=== PATIENT | female | born 1995 | race African-American/Black ===

== ENCOUNTER 2016-06-27 19:42 | Outpatient (CLI) | payer OTHER | END 2016-06-27 19:45 | disposition home or self-care (01) | LOC: CANPRECLI → M LDO 19:42 | PROVIDERS: ATTEND Advanced Practice Midwife | DX: Z36 Encounter for antenatal screening of mother (principal); Z3A.22 22 weeks gestation of pregnancy; Z79.899 Other long term (current) drug therapy ==

== ENCOUNTER 2016-06-27 19:51 | Emergency (ER) | payer OTHER ==
[2016-06-27] MEDS ORDERED: METOCLOPRAMIDE INJ 10MG/2ML VIAL (J2765) As Ordered ONE (21:20)
[2016-06-27 21:30] LABS: EOS # 0.2 K/mm3 (0.0-0.50); EOS % 1.7 % (0.0-3.0); LARGE UNSTAINED CELL # 0.1 K/mm3 (0.0-0.4); LARGE UNSTAINED CELL % 0.4 % (0.0-4.0); LYMPH # 0.6 K/mm3 (1.5-6.5); LYMPH % 3.7 % (24.0-44.0); MEAN CORPUSCULAR HGB CONC 33.2 g/dl (32.0-36.5); MEAN CORPUSCULAR VOLUME 84.3 fl (80.0-96.0); MONO # 0.4 K/mm3 (0.0-0.8); MONO % 2.8 % (0.0-5.0); NEUTROPHILS # 12.9 K/mm3 (1.8-7.7); NEUTROPHILS % 91.3 % (36.0-66.0); PLATELET COUNT, AUTOMATED 302 k/mm3 (150-450); RED CELL DISTRIBUTION WIDTH 13.3 % (11.5-14.5); WHITE BLOOD COUNT 14.2 K/mm3 (4.0-10.0)
[2016-06-27 21:52] LABS: ALBUMIN 2.8 GM/DL (3.2-5.2); ALBUMIN/GLOBULIN RATIO 0.67 (1.00-1.93); ALKALINE PHOSPHATASE 85 U/L (45-117); ALT/SGPT 13 U/L (12-78); ANION GAP 12 MEQ/L (8-16); AST/SGOT 13 U/L (15-37); BILIRUBIN,DIRECT < 0.1 MG/DL (0.0-0.2); BILIRUBIN,TOTAL 0.3 MG/DL (0.2-1.0); BLOOD UREA NITROGEN 11 MG/DL (7-18); CALCIUM LEVEL 8.3 MG/DL (8.5-10.1); CARBON DIOXIDE LEVEL 22 MEQ/L (21-32); CHLORIDE LEVEL 107 MEQ/L (98-107); GLOMERULAR FILTRATION RATE > 60.0 (>60); GLUCOSE, FASTING 87 MG/DL (70-105); POTASSIUM SERUM 4.1 MEQ/L (3.5-5.1); SODIUM LEVEL 141 MEQ/L (136-145)
--- NOTE | 2016-06-27 23:16 | EDDOCDS ---
Physician Documentation [facility] Name: Desi Mcguire Age: 20 yrs Sex: Female : 1995 Arrival Date: 06/27/2016 Time: 19:51 Bed I2 / M2 Private MD: TY Killian Disposition: 06/27/16 23:00 Discharged to Home/Self Care. Impression: Vomiting, Diarrhea, unspecified, 20 weeks gestation of . - Condition is Stable. - Discharge Instructions: Diarrhea, Nausea and Vomiting, Second Trimester of , Vyfx-ic-Eqys. - Prescriptions for Reglan 10 mg Oral Tablet - take 1 tablet by ORAL route every 6 hours take 30 minutes before meals and at bedtime; 20 tablet. - Work Release Form - 2 day, Medication Reconciliation, Local Pharmacy Hours form. - Follow up: TY Killian; When: Call to arrange an appointment; Reason: Recheck today's complaints, Continuance of care. - Problem is new. - Symptoms are unchanged. Historical: - Allergies: none; - Home Meds: 1. Advair Diskus 250-50 mcg/dose Inhl dsdv 1 puff 2 times per day 2. albuterol sulfate 90 mcg/actuation Inhl HFAA 1 puff every 4 hours 3. albuterol sulfate 1.25 mg/3 mL Inhl nebu 3 mL 3 times per day 4. fluticasone 50 mcg/actuation nasal spsn 2 sprays as needed 5. loratadine 10 mg Oral tab 1 tab once daily 6. Singulair 10 mg Oral tab 1 tab once daily - PMHx: Allergies, Seasonal; Asthma; back pain; Eczema; ulcers; - PSHx: Adenoidectomy; - Social history: Smoking status: Patient states was never smoker of tobacco. No barriers to communication noted, The patient speaks fluent [place]. - Family history: Not pertinent. - : The pt / caregiver states he / she is not on anticoagulants. Home medication list is obtained from the patient. - Exposure Risk Screening:: None identified. 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 3 in. (160.02 cm); Pain 9/10; 23:13 BP 118 / 64; Pulse 109; Resp 20; Pulse Ox 98% ; slm 19:53 Body Mass Index 60.23 (154.22 kg, 160.02 cm) cmb MDM: 20:34 NS 0.9% 1000 ml IV at bolus once ordered. mo1 20:34 IV Saline Lock ordered. mo1 20:34 Undress patient appropriately for examination ordered. mo1 20:34 Metoclopramide 10 mg IV at 40 mg/hr once over 15 mins ordered. mo1 20:34 NOTHING BY MOUTH+DIET ordered. EDMS 20:35 Basic Metabolic Profile Ordered. EDMS 20:35 CBC with Diff Ordered. EDMS 20:35 Lipase Ordered. EDMS 20:35 Liver Profile Ordered. EDMS 20:35 Urinalysis Ordered. EDMS 20:35 Urine Culture Ordered. EDMS 20:46 Financial registration complete. [email or web address] 20:57 [facility] Payment Agreement was scanned into [employer] and attached to record. ks16 21:38 Obs. Limited, WARD US Ordered. EDMS 22:03 Basic Metabolic Profile Reviewed. mo1 22:04 CBC with Diff Reviewed. mo1 22:04 Liver Profile Reviewed. mo1 22:04 Urinalysis Reviewed. mo1 22:05 Lipase Reviewed. mo1 Administered Medications: 21:39 Drug: NS 0.9% 1000 ml Route: IV; Rate: bolus; Site: right antecubital; [facility] 23:15 Follow up: IV Status: Completed infusion; IV Intake: 1000ml [facility] 21:39 Drug: Metoclopramide 10 mg [metoclopramide 5 mg/mL injection solution] Route: IV; Rate: cjh 40 mg/hr; Infused Over: 15 mins; Site: right antecubital; Signatures: Dispatcher [employer] Marci Mendoza RN RN mcp O'Hagan, Michael, PA PA mo1 Audra Hammonds LPN LPN Nyasia Scott RN RN ko2 Maite Mireles, Reg Reg ks16 Faye Howard RN [facility] The chart was reviewed and I authenticate all verbal orders and agree with the evaluation and treatment provided.Corrections: (The following items were deleted from the chart) 21:37 21:00 US OBS SINGEL GEST+US ordered. EDMS EDMS 21:40 20:21 Heart Tones ordered. mo1 [facility] Attachments: 20:57 [facility] Payment Agreement ks16 MTDD
--- NOTE | 2016-06-27 23:16 | EDDOCDS ---
Nurse's Notes [facility] Name: Desi Mcguire Age: 20 yrs Sex: Female : 1995 Arrival Date: 06/27/2016 Time: 19:51 Bed I2 / M2 Private MD: TY Killian Diagnosis: Vomiting;Diarrhea, unspecified;20 weeks gestation of Presentation: 06/27 19:56 Presenting complaint: Patient states: Constant upper abdomen pain since Wednesday, mcp vomiting since early this am. Is 21 weeks . Adult Sepsis Screening: The patient does not have new or worsening altered mentation. Patient's respiratory rate is less than 22. Systolic blood pressure is greater than 100. Patient has a qSOFA score of 0- Negative Sepsis Screen. Suicide/Homicide risk assessment- the patient denies having any suicidal and/or homicidal ideations and does not present with any other emotional, behavioral or mental health complaints. Status: The patient is a dependent. Transition of care: patient was not received from another setting of care. 19:56 Acuity: RADHA Level 3 [facility] 19:56 Method Of Arrival: Wheelchair [facility] Triage Assessment: 19:59 General: Appears ill, Behavior is cooperative. Pain: Location: right upper quadrant and mcp left upper quadrant Pain currently is 9 out of 10 on a pain scale. HIV screening NA for this visit Offered previously. Neurological: No deficits noted. Respiratory: Airway is patent Respiratory effort is even, unlabored. GI: Reports upper abd pain, nausea, vomiting. Derm: Skin is normal. 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 Advair Diskus 250-50 mcg/dose Inhl dsdv 1 puff 2 times per day 2. albuterol sulfate 90 mcg/actuation Inhl HFAA 1 puff every 4 hours 3. albuterol sulfate 1.25 mg/3 mL Inhl nebu 3 mL 3 times per day 4. fluticasone 50 mcg/actuation nasal spsn 2 sprays as needed 5. loratadine 10 mg Oral tab 1 tab once daily 6. Singulair 10 mg Oral tab 1 tab once daily - PMHx: Allergies, Seasonal; Asthma; back pain; Eczema; ulcers; - PSHx: Adenoidectomy; - Social history: Smoking status: Patient states was never smoker of tobacco. No barriers to communication noted, The patient speaks fluent Indonesian. - Family history: Not pertinent. - : The pt / caregiver states he / she is not on anticoagulants. Home medication list is obtained from the patient. - Exposure Risk Screening:: None identified. Screenin:11 Screening information is obtained from the patient. Fall risk: No risks identified. ko2 Assistance ADL's: requires no assistance with activities of daily living. Abuse/DV Screen: The patient / caregiver reports he/she is: not in a situation that causes fear, pain or injury. Nutritional screening: No deficits noted. Advance Directives: Currently, there is no health care proxy. There is no active DNR order. There is no living will. There is no Power of Lead Generator. home support is adequate. Assessment: 20:15 General: Appears distressed, Behavior is appropriate for age, cooperative. ko2 Neurological: Level of Consciousness is awake, alert. Respiratory: Airway is patent Respiratory effort is even, unlabored. GI: Abdomen is gravid Bowel sounds present X 4 quads. Abd is soft and non tender. Derm: Skin is normal. 21:20 General: Appears distressed, Behavior is appropriate for age, cooperative. ko2 Neurological: Level of Consciousness is awake, alert. Respiratory: Airway is patent Respiratory effort is even, unlabored. Derm: Skin is normal. 22:32 General: Appears in no apparent distress, pt currently snoring on stretcher. ko2 Respiratory: Airway is patent Respiratory effort is even, unlabored. Derm: Skin is normal. 23:13 Reassessment: Patient appears in no apparent distress at this time. Patient states slm feeling better. Patient states symptoms have improved. Vital Signs: 19:53 BP 143 / 71; Pulse 120; Resp 18; Temp 99.4(O); Pulse Ox 99% ; Weight 154.22 kg; Height cmb 5 ft. 3 in. (160.02 cm); Pain 9/10; 23:13 BP 118 / 64; Pulse 109; Resp 20; Pulse Ox 98% ; slm 19:53 Body Mass Index 60.23 (154.22 kg, 160.02 cm) cmb Vitals: 19:53 Log In Time: June 27, 2016 at 19:51. cmb ED Course: 19:52 Patient visited by Idalia Marques. cmb 19:52 Constantin [facility] is Private Physician. cmb 19:52 Patient moved to Waiting cmb 19:54 Patient moved to Pre RCE cmb 19:58 Triage Initiated mcp 19:59 Patient visited by Marci Singletary RN. mcp 20:02 Patient moved to Triage 3 mcp 20:04 Patient moved to I2 / M2 ms18 20:20 Shabbir Pedersen PA is PHCP. mo1 20:20 Janak Jansen DO is Attending Physician. mo1 20:33 Patient visited by Shabbir Pedersen PA. mo1 20:55 Patient name changed from Desi\S\\S\Maynor\S\ to Desi\S\ \S\Maynor. EDMS 20:57 [facility] Payment Agreement was scanned into [employer] and attached to record. ks16 21:21 Basic Metabolic Profile Sent. ko2 21:22 CBC with Diff Sent. ko2 21:22 Liver Profile Sent. ko2 21:22 Lipase Sent. ko2 21:22 Urinalysis Sent. ko2 21:22 Urine Culture Sent. ko2 21:38 Patient visited by Nyasia Gonzalez RN. ko2 22:12 The patient / caregiver is instructed regarding the plan of care and ED course. ko2 22:31 Patient visited by Nyasia Gonzalez RN. ko2 22:32 Patient visited by Nyasia Gonzalez RN. ko2 23:00 TY Killian is Referral Physician. mo1 23:13 Inserted saline lock: 20 gauge in left antecubital area and blood collected. slm 23:14 Discontinued lock intact, bleeding controlled, pressure dressing applied, No slm redness/swelling at site. 23:14 No procedures done that require assistance. slm Administered Medications: 21:39 Drug: NS 0.9% 1000 ml Route: IV; Rate: bolus; Site: right antecubital; cjh 23:15 Follow up: IV Status: Completed infusion; IV Intake: 1000ml slm 21:39 Drug: Metoclopramide 10 mg [metoclopramide 5 mg/mL injection solution] Route: IV; Rate: cjh 40 mg/hr; Infused Over: 15 mins; Site: right antecubital; Intake: 23:15 IV: 1000.00ml; Total: 1000.00ml. [facility] Order Results: Lab Order: Basic Metabolic Profile; SPEC06/27/16 21:18 Test: GLUCOSE, FASTING; Value: 87; Range: 70-105; Units: MG/DL; Status: F Test: BLOOD UREA NITROGEN; Value: 11; Range: 7-18; Units: MG/DL; Status: F Test: CREATININE FOR GFR; Value: 0.50; Range: 0.55-1.02; Abnormal: Below low normal; Units: MG/DL; Status: F Test: GLOMERULAR FILTRATION RATE; Value: > 60.0; Range: >60; Status: F Test: SODIUM LEVEL; Value: 141; Range: 136-145; Units: MEQ/L; Status: F Test: POTASSIUM SERUM; Value: 4.1; Range: 3.5-5.1; Units: MEQ/L; Status: F Test: CHLORIDE LEVEL; Value: 107; Range: 98-107; Units: MEQ/L; Status: F Test: CARBON DIOXIDE LEVEL; Value: 22; Range: 21-32; Units: MEQ/L; Status: F Test: ANION GAP; Value: 12; Range: 8-16; Units: MEQ/L; Status: F Test: CALCIUM LEVEL; Value: 8.3; Range: 8.5-10.1; Abnormal: Below low normal; Units: MG/DL; Status: F Test Note: ; Units are mL/min/1.73 m2 Chronic Kidney Disease Staging per NKF: Stage I & II GFR >=60 Normal to Mildly Decreased Stage III GFR 30-59 Moderately Decreased Stage IV GFR 15-29 Severely Decreased Stage V GFR <15 Very Little GFR Left ESRD GFR <15 on [employer] Lab Order: CBC with Diff; SPEC06/27/16 21:18 Test: WHITE BLOOD COUNT; Value: 14.2; Range: 4.0-10.0; Abnormal: Above high normal; Units: K/mm3; Status: F Test: RED BLOOD COUNT; Value: 4.35; Range: 4.00-5.40; Units: M/mm3; Status: F Test: HEMOGLOBIN; Value: 12.2; Range: 12.0-16.0; Units: g/dl; Status: F Test: HEMATOCRIT; Value: 36.7; Range: 36.0-47.0; Units: %; Status: F Test: MEAN CORPUSCULAR VOLUME; Value: 84.3; Range: 80.0-96.0; Units: fl; Status: F Test: MEAN CORPUSCULAR HEMOGLOBIN; Value: 28.0; Range: 27.0-33.0; Units: pg; Status: F Test: MEAN CORPUSCULAR HGB CONC; Value: 33.2; Range: 32.0-36.5; Units: g/dl; Status: F Test: RED CELL DISTRIBUTION WIDTH; Value: 13.3; Range: 11.5-14.5; Units: %; Status: F Test: PLATELET COUNT, AUTOMATED; Value: 302; Range: 150-450; Units: k/mm3; Status: F Test: NEUTROPHILS %; Value: 91.3; Range: 36.0-66.0; Abnormal: Above high normal; Units: %; Status: F Test: LYMPH %; Value: 3.7; Range: 24.0-44.0; Abnormal: Below low normal; Units: %; Status: F Test: MONO %; Value: 2.8; Range: 0.0-5.0; Units: %; Status: F Test: EOS %; Value: 1.7; Range: 0.0-3.0; Units: %; Status: F Test: BASO %; Value: 0.0; Range: 0.0-1.0; Units: %; Status: F Test: LARGE UNSTAINED CELL %; Value: 0.4; Range: 0.0-4.0; Units: %; Status: F Test: NEUTROPHILS #; Value: 12.9; Range: 1.8-7.7; Abnormal: Above high normal; Units: K/mm3; Status: F Test: LYMPH #; Value: 0.6; Range: 1.5-6.5; Abnormal: Below low normal; Units: K/mm3; Status: F Test: MONO #; Value: 0.4; Range: 0.0-0.8; Units: K/mm3; Status: F Test: EOS #; Value: 0.2; Range: 0.0-0.50; Units: K/mm3; Status: F Test: BASO #; Value: 0.0; Range: 0.0-0.2; Units: K/mm3; Status: F Test: LARGE UNSTAINED CELL #; Value: 0.1; Range: 0.0-0.4; Units: K/mm3; Status: F Lab Order: Lipase; [facility] 06/27/16 21:18 Test: LIPASE; Value: 106; Range: 73-393; Units: U/L; Status: F Lab Order: Liver Profile; [facility] 06/27/16 21:18 Test: AST/SGOT; Value: 13; Range: 15-37; Abnormal: Below low normal; Units: U/L; Status: F Test: ALT/SGPT; Value: 13; Range: 12-78; Units: U/L; Status: F Test: ALKALINE PHOSPHATASE; Value: 85; Range: 45-117; Units: U/L; Status: F Test: BILIRUBIN,TOTAL; Value: 0.3; Range: 0.2-1.0; Units: MG/DL; Status: F Test: BILIRUBIN,DIRECT; Value: < 0.1; Range: 0.0-0.2; Units: MG/DL; Status: F Test: TOTAL PROTEIN; Value: 7.0; Range: 6.4-8.2; Units: GM/DL; Status: F Test: ALBUMIN; Value: 2.8; Range: 3.2-5.2; Abnormal: Below low normal; Units: GM/DL; Status: F Test: ALBUMIN/GLOBULIN RATIO; Value: 0.67; Range: 1.00-1.93; Abnormal: Below low normal; Status: F Lab Order: Urinalysis; [facility] 06/27/16 21:18 Test: APPEARANCE, URINE; Value: CLOUDY; Range: CLEAR; Abnormal: Above high normal; Status: F Test: COLOR, URINE; Value: YELLOW; Range: YELLOW; Status: F Test: PH,URINE; Value: 6.0; Range: 5.0-9.0; Units: UNITS; Status: F Test: SPECIFIC GRAVITY URINE AUTO; Value: 1.029; Range: 1.002-1.035; Status: F Test: PROTEIN, URINE AUTO; Value: 1+; Range: NEGATIVE; Abnormal: Above high normal; Units: mg/dL; Status: F Test: GLUCOSE, URINE (UA) AUTO; Value: NEGATIVE; Range: NEGATIVE; Units: mg/dL; Status: F Test: KETONE, URINE AUTO; Value: TRACE; Range: NEGATIVE; Abnormal: Above high normal; Units: mg/dL; Status: F Test: UROBILINOGEN, URINE AUTO; Value: 0.2; Range: 0.0-2.0; Units: mg/dL; Status: F Test: BILIRUBIN, URINE AUTO; Value: NEGATIVE; Range: NEGATIVE; Status: F Test: NITRITE, URINE AUTO; Value: NEGATIVE; Range: NEGATIVE; Status: F Test: LEUKOCYTE ESTERASE, URINE AUTO; Value: NEGATIVE; Range: NEGATIVE; Status: F Test: BLOOD, URINE BLOOD; Value: NEGATIVE; Range: NEGATIVE; Status: F Test: WBC, URINE AUTO; Value: 4; Range: 0-3; Abnormal: Above high normal; Units: /HPF; Status: F Test: RBC, URINE AUTO; Value: 2; Range: 0-3; Units: /HPF; Status: F Test: BACTERIA, URINE AUTO; Value: 2+; Range: NEGATIVE; Abnormal: Above high normal; Status: F Test: SQUAMOUS EPITHELIAL CELL UR AU; Value: 5; Range: 0-6; Units: /HPF; Status: F Test: MUCUS, URINE; Value: MODERATE; Range: NEGATIVE; Status: F Test: HYALINE CAST, URINE AUTO; Value: 0; Range: 0-1; Units: /LPF; Status: F Outcome: 23:00 Discharge ordered by Provider. mo1 23:14 Discharge Assessment: Patient awake, alert and oriented x 3. No cognitive and/or slm functional deficits noted. Patient verbalized understanding of disposition instructions. patient administered narcotics - no. The following High Risk Discharge criteria are identified: None. Condition: good. Discharge instructions given to patient, Instructed on discharge instructions, follow up and referral plans. medication usage, Demonstrated understanding of instructions, medications, Pt was receptive of discharge instructions/ teaching. Prescriptions given X 1. Ultrasound Study completed. Property :Personal belongings accompany Pt. 23:15 Patient left the ED. slm Signatures: Dispatcher [employer] EDMS Marci Singletary RN RN mcp Hafner, Jane, RN RN cjh Boshart, Chelsea cmb O'Hagan, Michael, PA PA mo1 Audra Hammonds,ANALYTICAL STATISTICIAN ANALYTICAL STATISTICIAN slNyasia Scott,RN RN ko2 Bina GrigsbyRN RN ms18 Maite Mireles, Reg Reg ks16 MTDD
--- NOTE | 2016-06-29 10:51 | REPUSA ---
CLINICAL HISTORY: 22 weeks 0 days. Evaluate well-being. COMPARISON: No study for comparison is available at the time of interpretation. TECHNIQUE: OB ultrasound Uterus: Normal without masses. Cervix closed, 4.2 cm length. Intrauterine gestation sac: Live IUP with heart rate 155 bpm. Amniotic fluid index normal at 13 cm. P lacenta is posterior, without previa. No nuchal cord was seen. Anatomic survey was not requested or p erformed. IMPRESSION: Live IUP.
--- NOTE | 2016-06-30 00:16 | EDDOCDS ---
Physician Documentation [facility] Name: Desi Mcguire Age: 20 yrs Sex: Female : 1995 Arrival Date: 06/27/2016 Time: 19:51 Bed I2 / M2 Private MD: TY Killian Disposition: 06/27/16 23:00 Discharged to Home/Self Care. Impression: Vomiting, Diarrhea, unspecified, 20 weeks gestation of . - Condition is Stable. - Discharge Instructions: Diarrhea, Nausea and Vomiting, Second Trimester of , Catc-ul-Tobn. - Prescriptions for Reglan 10 mg Oral Tablet - take 1 tablet by ORAL route every 6 hours take 30 minutes before meals and at bedtime; 20 tablet. - Work Release Form - 2 day, Medication Reconciliation, Local Pharmacy Hours form. - Follow up: TY Killian; When: Call to arrange an appointment; Reason: Recheck today's complaints, Continuance of care. - Problem is new. - Symptoms are unchanged. Historical: - Allergies: none; - Home Meds: 1. Advair Diskus 250-50 mcg/dose Inhl dsdv 1 puff 2 times per day 2. albuterol sulfate 90 mcg/actuation Inhl HFAA 1 puff every 4 hours 3. albuterol sulfate 1.25 mg/3 mL Inhl nebu 3 mL 3 times per day 4. fluticasone 50 mcg/actuation nasal spsn 2 sprays as needed 5. loratadine 10 mg Oral tab 1 tab once daily 6. Singulair 10 mg Oral tab 1 tab once daily - PMHx: Allergies, Seasonal; Asthma; back pain; Eczema; ulcers; - PSHx: Adenoidectomy; - Social history: Smoking status: Patient states was never smoker of tobacco. No barriers to communication noted, The patient speaks fluent Spanish. - Family history: Not pertinent. - : The pt / caregiver states he / she is not on anticoagulants. Home medication list is obtained from the patient. - Exposure Risk Screening:: None identified. 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 3 in. (160.02 cm); Pain 9/10; 23:13 BP 118 / 64; Pulse 109; Resp 20; Pulse Ox 98% ; slm 19:53 Body Mass Index 60.23 (154.22 kg, 160.02 cm) cmb MDM: 20:34 NS 0.9% 1000 ml IV at bolus once ordered. mo1 20:34 IV Saline Lock ordered. mo1 20:34 Undress patient appropriately for examination ordered. mo1 20:34 Metoclopramide 10 mg IV at 40 mg/hr once over 15 mins ordered. mo1 20:34 NOTHING BY MOUTH+DIET ordered. EDMS 20:35 Basic Metabolic Profile Ordered. EDMS 20:35 CBC with Diff Ordered. EDMS 20:35 Lipase Ordered. EDMS 20:35 Liver Profile Ordered. EDMS 20:35 Urinalysis Ordered. EDMS 20:35 Urine Culture Ordered. EDMS 20:46 Financial registration complete. oh16 20:57 [facility] Payment Agreement was scanned into [employer] and attached to record. ks16 21:38 Obs. Limited, WARD US Ordered. EDMS 22:03 Basic Metabolic Profile Reviewed. mo1 22:04 CBC with Diff Reviewed. mo1 22:04 Liver Profile Reviewed. mo1 22:04 Urinalysis Reviewed. mo1 22:05 Lipase Reviewed. mo1 06/28 09:42 T-Sheet-- Draft Copy was scanned into [employer] and attached to record. seh Administered Medications: 06/27 21:39 Drug: NS 0.9% 1000 ml Route: IV; Rate: bolus; Site: right antecubital; cjh 23:15 Follow up: IV Status: Completed infusion; IV Intake: 1000ml [facility] 21:39 Drug: Metoclopramide 10 mg [metoclopramide 5 mg/mL injection solution] Route: IV; Rate: cjh 40 mg/hr; Infused Over: 15 mins; Site: right antecubital; Signatures: Dispatcher [employer] EDMarci Shelley RN RN mcp O'Hagan, Michael, PA PA mo1 Audra Hammonds LPN LPN Nyasia Scott RN RN ko2 Maite Mireles, Reg Reg ks16 Dulce Elias Jane RN [facility] The chart was reviewed and I authenticate all verbal orders and agree with the evaluation and treatment provided.Corrections: (The following items were deleted from the chart) 21:37 21:00 US OBS SINGEL GEST+US ordered. EDMS EDMS 21:40 20:21 Heart Tones ordered. [address] Attachments: 20:57 [facility] [place] Agreement [email or web address] 06/28 09:42 T-Sheet-- Draft Copy [facility] Chart Complete MTDD
--- NOTE | 2016-06-30 00:16 | EDDOCDS ---
Physician Documentation [facility] Name: Desi Mcguire Age: 20 yrs Sex: Female : 1995 Arrival Date: 06/27/2016 Time: 19:51 Bed I2 / M2 Private MD: TY Killian Disposition: 06/27/16 23:00 Discharged to Home/Self Care. Impression: Vomiting, Diarrhea, unspecified, 20 weeks gestation of . - Condition is Stable. - Discharge Instructions: Diarrhea, Nausea and Vomiting, Second Trimester of , [id number]. - Prescriptions for Reglan 10 mg Oral Tablet - take 1 tablet by ORAL route every 6 hours take 30 minutes before meals and at bedtime; 20 tablet. - Work Release Form - 2 day, Medication Reconciliation, Local Pharmacy Hours form. - Follow up: TY Killian; When: Call to arrange an appointment; Reason: Recheck today's complaints, Continuance of care. - Problem is new. - Symptoms are unchanged. Historical: - Allergies: none; - Home Meds: 1. Advair Diskus 250-50 mcg/dose Inhl dsdv 1 puff 2 times per day 2. albuterol sulfate 90 mcg/actuation Inhl HFAA 1 puff every 4 hours 3. albuterol sulfate 1.25 mg/3 mL Inhl nebu 3 mL 3 times per day 4. fluticasone 50 mcg/actuation nasal spsn 2 sprays as needed 5. loratadine 10 mg Oral tab 1 tab once daily 6. Singulair 10 mg Oral tab 1 tab once daily - PMHx: Allergies, Seasonal; Asthma; back pain; Eczema; ulcers; - PSHx: Adenoidectomy; - Social history: Smoking status: Patient states was never smoker of tobacco. No barriers to communication noted, The patient speaks fluent [place]. - Family history: Not pertinent. - : The pt / caregiver states he / she is not on anticoagulants. Home medication list is obtained from the patient. - Exposure Risk Screening:: None identified. 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 3 in. (160.02 cm); Pain 9/10; 23:13 BP 118 / 64; Pulse 109; Resp 20; Pulse Ox 98% ; slm 19:53 Body Mass Index 60.23 (154.22 kg, 160.02 cm) cmb MDM: 20:34 NS 0.9% 1000 ml IV at bolus once ordered. mo1 20:34 IV Saline Lock ordered. mo1 20:34 Undress patient appropriately for examination ordered. mo1 20:34 Metoclopramide 10 mg IV at 40 mg/hr once over 15 mins ordered. mo1 20:34 NOTHING BY MOUTH+DIET ordered. EDMS 20:35 Basic Metabolic Profile Ordered. EDMS 20:35 CBC with Diff Ordered. EDMS 20:35 Lipase Ordered. EDMS 20:35 Liver Profile Ordered. EDMS 20:35 Urinalysis Ordered. EDMS 20:35 Urine Culture Ordered. EDMS 20:46 Financial registration complete. [id number] 20:57 [facility] Payment Agreement was scanned into [employer] and attached to record. [email or web address] 21:38 Obs. Limited, WARD US Ordered. EDMS 22:03 Basic Metabolic Profile Reviewed. mo1 22:04 CBC with Diff Reviewed. mo1 22:04 Liver Profile Reviewed. mo1 22:04 Urinalysis Reviewed. mo1 22:05 Lipase Reviewed. mo1 06/28 09:42 T-Sheet-- Draft Copy was scanned into [employer] and attached to record. seh Administered Medications: 06/27 21:39 Drug: NS 0.9% 1000 ml Route: IV; Rate: bolus; Site: right antecubital; cjh 23:15 Follow up: IV Status: Completed infusion; IV Intake: 1000ml [facility] 21:39 Drug: Metoclopramide 10 mg [metoclopramide 5 mg/mL injection solution] Route: IV; Rate: cjh 40 mg/hr; Infused Over: 15 mins; Site: right antecubital; Signatures: Dispatcher [employer] EDMarci Shelley RN RN mcp O'Hagan, Michael, PA PA mo1 Audra Hammonds LPN LPN Nyasia Scott RN RN ko2 Maite Mireles, Reg Reg ks16 Dulce Elias Jane RN [facility] The chart was reviewed and I authenticate all verbal orders and agree with the evaluation and treatment provided.Corrections: (The following items were deleted from the chart) 21:37 21:00 US OBS SINGEL GEST+US ordered. EDMS EDMS 21:40 20:21 Heart Tones ordered. [address] Attachments: 20:57 [facility] Payment Agreement [email or web address] 06/28 09:42 T-Sheet-- Draft Copy [facility] Chart Complete MTDD
--- NOTE | 2016-06-30 00:16 | EDDOCDS ---
Nurse's Notes [facility] Name: Desi Mcguire Age: 20 yrs Sex: Female : 1995 Arrival Date: 06/27/2016 Time: 19:51 Bed I2 / M2 Private MD: TY Killian Diagnosis: Vomiting;Diarrhea, unspecified;20 weeks gestation of Presentation: 06/27 19:56 Presenting complaint: Patient states: Constant upper abdomen pain since Wednesday, mcp vomiting since early this am. Is 21 weeks . Adult Sepsis Screening: The patient does not have new or worsening altered mentation. Patient's respiratory rate is less than 22. Systolic blood pressure is greater than 100. Patient has a qSOFA score of 0- Negative Sepsis Screen. Suicide/Homicide risk assessment- the patient denies having any suicidal and/or homicidal ideations and does not present with any other emotional, behavioral or mental health complaints. Status: The patient is a dependent. Transition of care: patient was not received from another setting of care. 19:56 Acuity: RADHA Level 3 [facility] 19:56 Method Of Arrival: Wheelchair [facility] Triage Assessment: 19:59 General: Appears ill, Behavior is cooperative. Pain: Location: right upper quadrant and mcp left upper quadrant Pain currently is 9 out of 10 on a pain scale. HIV screening NA for this visit Offered previously. Neurological: No deficits noted. Respiratory: Airway is patent Respiratory effort is even, unlabored. GI: Reports upper abd pain, nausea, vomiting. Derm: Skin is normal. 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 Advair Diskus 250-50 mcg/dose Inhl dsdv 1 puff 2 times per day 2. albuterol sulfate 90 mcg/actuation Inhl HFAA 1 puff every 4 hours 3. albuterol sulfate 1.25 mg/3 mL Inhl nebu 3 mL 3 times per day 4. fluticasone 50 mcg/actuation nasal spsn 2 sprays as needed 5. loratadine 10 mg Oral tab 1 tab once daily 6. Singulair 10 mg Oral tab 1 tab once daily - PMHx: Allergies, Seasonal; Asthma; back pain; Eczema; ulcers; - PSHx: Adenoidectomy; - Social history: Smoking status: Patient states was never smoker of tobacco. No barriers to communication noted, The patient speaks fluent [place]iny[place]. - Family history: Not pertinent. - : The pt / caregiver states he / she is not on anticoagulants. Home medication list is obtained from the patient. - Exposure Risk Screening:: None identified. Screenin:11 Screening information is obtained from the patient. Fall risk: No risks identified. ko2 Assistance ADL's: requires no assistance with activities of daily living. Abuse/DV Screen: The patient / caregiver reports he/she is: not in a situation that causes fear, pain or injury. Nutritional screening: No deficits noted. Advance Directives: Currently, there is no health care proxy. There is no active DNR order. There is no living will. There is no Power of Physical Science Teacher. home support is adequate. Assessment: 20:15 General: Appears distressed, Behavior is appropriate for age, cooperative. ko2 Neurological: Level of Consciousness is awake, alert. Respiratory: Airway is patent Respiratory effort is even, unlabored. GI: Abdomen is gravid Bowel sounds present X 4 quads. Abd is soft and non tender. Derm: Skin is normal. 21:20 General: Appears distressed, Behavior is appropriate for age, cooperative. ko2 Neurological: Level of Consciousness is awake, alert. Respiratory: Airway is patent Respiratory effort is even, unlabored. Derm: Skin is normal. 22:32 General: Appears in no apparent distress, pt currently snoring on stretcher. ko2 Respiratory: Airway is patent Respiratory effort is even, unlabored. Derm: Skin is normal. 23:13 Reassessment: Patient appears in no apparent distress at this time. Patient states slm feeling better. Patient states symptoms have improved. Vital Signs: 19:53 BP 143 / 71; Pulse 120; Resp 18; Temp 99.4(O); Pulse Ox 99% ; Weight 154.22 kg; Height cmb 5 ft. 3 in. (160.02 cm); Pain 9/10; 23:13 BP 118 / 64; Pulse 109; Resp 20; Pulse Ox 98% ; slm 19:53 Body Mass Index 60.23 (154.22 kg, 160.02 cm) cmb Vitals: 19:53 Log In Time: June 27, 2016 at 19:51. cmb ED Course: 19:52 Patient visited by Idalia Marques. cmb 19:52 [facility] is Private Physician. cmb 19:52 Patient moved to Waiting cmb 19:54 Patient moved to Pre RCE cmb 19:58 Triage Initiated mcp 19:59 Patient visited by Marci Singletary RN. mcp 20:02 Patient moved to Triage 3 mcp 20:04 Patient moved to I2 / M2 ms18 20:20 Shabbir Pedersen PA is PHCP. mo1 20:20 Janak Jansen DO is Attending Physician. mo1 20:33 Patient visited by Shabbir Pedersen PA. mo1 20:55 Patient name changed from Desi\S\\S\Maynor\S\ to Desi\S\ \S\Maynor. EDMS 20:57 [facility] Payment Agreement was scanned into [employer] and attached to record. [email or web address] 21:21 Basic Metabolic Profile Sent. ko2 21:22 CBC with Diff Sent. ko2 21:22 Liver Profile Sent. ko2 21:22 Lipase Sent. ko2 21:22 Urinalysis Sent. ko2 21:22 Urine Culture Sent. ko2 21:38 Patient visited by Nyasia Gonzalez RN. ko2 22:12 The patient / caregiver is instructed regarding the plan of care and ED course. ko2 22:31 Patient visited by Nyasia Gonzalez,[place]. ko2 22:32 Patient visited by Nyasia Gonzalez,[place]. ko2 23:00 [facility] is Referral Physician. mo1 23:13 Inserted saline lock: 20 gauge in left antecubital area and blood collected. slm 23:14 Discontinued lock intact, bleeding controlled, pressure dressing applied, No slm redness/swelling at site. 23:14 No procedures done that require assistance. sl 06/28 09:42 T-Sheet-- Draft Copy was scanned into [employer] and attached to record. [facility] 06/29 11:04 Obs. Limited, WARD US Returned. EDMS Administered Medications: 06/27 21:39 Drug: NS 0.9% 1000 ml Route: IV; Rate: bolus; Site: right antecubital; [facility] 23:15 Follow up: IV Status: Completed infusion; IV Intake: 1000ml slm 21:39 Drug: Metoclopramide 10 mg [metoclopramide 5 mg/mL injection solution] Route: IV; Rate: cjh 40 mg/hr; Infused Over: 15 mins; Site: right antecubital; Intake: 23:15 IV: 1000.00ml; Total: 1000.00ml. slm Order Results: Lab Order: Basic Metabolic Profile; SPEC'M 06/27/16 21:18 Test: GLUCOSE, FASTING; Value: 87; Range: 70-105; Units: MG/DL; Status: F Test: BLOOD UREA NITROGEN; Value: 11; Range: 7-18; Units: MG/DL; Status: F Test: CREATININE FOR GFR; Value: 0.50; Range: 0.55-1.02; Abnormal: Below low normal; Units: MG/DL; Status: F Test: GLOMERULAR FILTRATION RATE; Value: > 60.0; Range: >60; Status: F Test: SODIUM LEVEL; Value: 141; Range: 136-145; Units: MEQ/L; Status: F Test: POTASSIUM SERUM; Value: 4.1; Range: 3.5-5.1; Units: MEQ/L; Status: F Test: CHLORIDE LEVEL; Value: 107; Range: 98-107; Units: MEQ/L; Status: F Test: CARBON DIOXIDE LEVEL; Value: 22; Range: 21-32; Units: MEQ/L; Status: F Test: ANION GAP; Value: 12; Range: 8-16; Units: MEQ/L; Status: F Test: CALCIUM LEVEL; Value: 8.3; Range: 8.5-10.1; Abnormal: Below low normal; Units: MG/DL; Status: F Test Note: ; Units are mL/min/1.73 m2 Chronic Kidney Disease Staging per NKF: Stage I & II GFR >=60 Normal to Mildly Decreased Stage III GFR 30-59 Moderately Decreased Stage IV GFR 15-29 Severely Decreased Stage V GFR <15 Very Little GFR Left ESRD GFR <15 on SERICULTURE TEACHER Lab Order: CBC with Diff; SPEC'M 06/27/16 21:18 Test: WHITE BLOOD COUNT; Value: 14.2; Range: 4.0-10.0; Abnormal: Above high normal; Units: K/mm3; Status: F Test: RED BLOOD COUNT; Value: 4.35; Range: 4.00-5.40; Units: M/mm3; Status: F Test: HEMOGLOBIN; Value: 12.2; Range: 12.0-16.0; Units: g/dl; Status: F Test: HEMATOCRIT; Value: 36.7; Range: 36.0-47.0; Units: %; Status: F Test: MEAN CORPUSCULAR VOLUME; Value: 84.3; Range: 80.0-96.0; Units: fl; Status: F Test: MEAN CORPUSCULAR HEMOGLOBIN; Value: 28.0; Range: 27.0-33.0; Units: pg; Status: F Test: MEAN CORPUSCULAR HGB CONC; Value: 33.2; Range: 32.0-36.5; Units: g/dl; Status: F Test: RED CELL DISTRIBUTION WIDTH; Value: 13.3; Range: 11.5-14.5; Units: %; Status: F Test: PLATELET COUNT, AUTOMATED; Value: 302; Range: 150-450; Units: k/mm3; Status: F Test: NEUTROPHILS %; Value: 91.3; Range: 36.0-66.0; Abnormal: Above high normal; Units: %; Status: F Test: LYMPH %; Value: 3.7; Range: 24.0-44.0; Abnormal: Below low normal; Units: %; Status: F Test: MONO %; Value: 2.8; Range: 0.0-5.0; Units: %; Status: F Test: EOS %; Value: 1.7; Range: 0.0-3.0; Units: %; Status: F Test: BASO %; Value: 0.0; Range: 0.0-1.0; Units: %; Status: F Test: LARGE UNSTAINED CELL %; Value: 0.4; Range: 0.0-4.0; Units: %; Status: F Test: NEUTROPHILS #; Value: 12.9; Range: 1.8-7.7; Abnormal: Above high normal; Units: K/mm3; Status: F Test: LYMPH #; Value: 0.6; Range: 1.5-6.5; Abnormal: Below low normal; Units: K/mm3; Status: F Test: MONO #; Value: 0.4; Range: 0.0-0.8; Units: K/mm3; Status: F Test: EOS #; Value: 0.2; Range: 0.0-0.50; Units: K/mm3; Status: F Test: BASO #; Value: 0.0; Range: 0.0-0.2; Units: K/mm3; Status: F Test: LARGE UNSTAINED CELL #; Value: 0.1; Range: 0.0-0.4; Units: K/mm3; Status: F Lab Order: Lipase; [facility] 06/27/16 21:18 Test: LIPASE; Value: 106; Range: 73-393; Units: U/L; Status: F Lab Order: Liver Profile; [facility] 06/27/16 21:18 Test: AST/SGOT; Value: 13; Range: 15-37; Abnormal: Below low normal; Units: U/L; Status: F Test: ALT/SGPT; Value: 13; Range: 12-78; Units: U/L; Status: F Test: ALKALINE PHOSPHATASE; Value: 85; Range: 45-117; Units: U/L; Status: F Test: BILIRUBIN,TOTAL; Value: 0.3; Range: 0.2-1.0; Units: MG/DL; Status: F Test: BILIRUBIN,DIRECT; Value: < 0.1; Range: 0.0-0.2; Units: MG/DL; Status: F Test: TOTAL PROTEIN; Value: 7.0; Range: 6.4-8.2; Units: GM/DL; Status: F Test: ALBUMIN; Value: 2.8; Range: 3.2-5.2; Abnormal: Below low normal; Units: GM/DL; Status: F Test: ALBUMIN/GLOBULIN RATIO; Value: 0.67; Range: 1.00-1.93; Abnormal: Below low normal; Status: F Lab Order: Urinalysis; [facility] 06/27/16 21:18 Test: APPEARANCE, URINE; Value: CLOUDY; Range: CLEAR; Abnormal: Above high normal; Status: F Test: COLOR, URINE; Value: YELLOW; Range: YELLOW; Status: F Test: PH,URINE; Value: 6.0; Range: 5.0-9.0; Units: UNITS; Status: F Test: SPECIFIC GRAVITY URINE AUTO; Value: 1.029; Range: 1.002-1.035; Status: F Test: PROTEIN, URINE AUTO; Value: 1+; Range: NEGATIVE; Abnormal: Above high normal; Units: mg/dL; Status: F Test: GLUCOSE, URINE (UA) AUTO; Value: NEGATIVE; Range: NEGATIVE; Units: mg/dL; Status: F Test: KETONE, URINE AUTO; Value: TRACE; Range: NEGATIVE; Abnormal: Above high normal; Units: mg/dL; Status: F Test: UROBILINOGEN, URINE AUTO; Value: 0.2; Range: 0.0-2.0; Units: mg/dL; Status: F Test: BILIRUBIN, URINE AUTO; Value: NEGATIVE; Range: NEGATIVE; Status: F Test: NITRITE, URINE AUTO; Value: NEGATIVE; Range: NEGATIVE; Status: F Test: LEUKOCYTE ESTERASE, URINE AUTO; Value: NEGATIVE; Range: NEGATIVE; Status: F Test: BLOOD, URINE BLOOD; Value: NEGATIVE; Range: NEGATIVE; Status: F Test: WBC, URINE AUTO; Value: 4; Range: 0-3; Abnormal: Above high normal; Units: /HPF; Status: F Test: RBC, URINE AUTO; Value: 2; Range: 0-3; Units: /HPF; Status: F Test: BACTERIA, URINE AUTO; Value: 2+; Range: NEGATIVE; Abnormal: Above high normal; Status: F Test: SQUAMOUS EPITHELIAL CELL UR AU; Value: 5; Range: 0-6; Units: /HPF; Status: F Test: MUCUS, URINE; Value: MODERATE; Range: NEGATIVE; Status: F Test: HYALINE CAST, URINE AUTO; Value: 0; Range: 0-1; Units: /LPF; Status: F Lab Order: Urine Culture; SPEC'M 06/27/16 21:18 Test: URINE CULTURE; Value: <EXTERNAL COMMENT eCWMed> FULL REPORT IN LAB NOTES (eCW and Medent).; Status: F Test: URINE CULTURE; Value: URINE CULTURE RESULT NO GROWTH; Status: F Radiology Order: Obs. Limited, WARD US Test: Obs. Limited, WARD US REASON FOR EXAMINATION: 21 wks, assess well being; ; CLINICAL HISTORY: 22 weeks 0 days. Evaluate well-being.; ; COMPARISON: No study for comparison is available at the time of interpretation.; ; TECHNIQUE: OB ultrasound; Uterus: Normal without masses. Cervix closed, 4.2 cm length.; ; Intrauterine gestation sac: Live IUP with heart rate 155 bpm. Amniotic fluid index normal at 13 cm. P; lacenta is posterior, without previa. No nuchal cord was seen. Anatomic survey was not requested or p; erformed.; IMPRESSION: Live IUP.; ; Outcome: 23:00 Discharge ordered by Provider. mo1 23:14 Discharge Assessment: Patient awake, alert and oriented x 3. No cognitive and/or slm functional deficits noted. Patient verbalized understanding of disposition instructions. patient administered narcotics - no. The following High Risk Discharge criteria are identified: None. Condition: good. Discharge instructions given to patient, Instructed on discharge instructions, follow up and referral plans. medication usage, Demonstrated understanding of instructions, medications, Pt was receptive of discharge instructions/ teaching. Prescriptions given X 1. Ultrasound Study completed. Property :Personal belongings accompany Pt. 23:15 Patient left the ED. slm Signatures: Dispatcher [employer] EDMS Marci Singletary RN Faye Mcneal mcpRN RN Idalia Horowitz Michael, PA PA mo1 Audra Hammonds LPN LPN slNyasia Scott RN RN [email or web address] Bina Grigsby RN RN [id number] Maite Mireles, Reg Reg [id number] Dulce Elias Chart Complete MTDD
== END 2016-06-27 23:15 | disposition home or self-care (01) ==
LOC: M ED 19:51
DX: O21.9 Vomiting of pregnancy, unspecified (principal); O99.89 Other specified diseases and conditions complicating pregnancy, childbirth and the puerperium; O99.282 Endocrine, nutritional and metabolic diseases complicating pregnancy, second trimester; R19.7 Diarrhea, unspecified; Z3A.20 20 weeks gestation of pregnancy; O99.512 Diseases of the respiratory system complicating pregnancy, second trimester; O99.712 Diseases of the skin and subcutaneous tissue complicating pregnancy, second trimester; Z79.899 Other long term (current) drug therapy
CPT/HCPCS: 36415; 76815; 80048; 80076; 81001; 83690; 85025; 87086; 96361; 96374; 99284; J2765